=== PATIENT | male | born 1995 | race Two or more races ===

== ENCOUNTER 2017-10-10 08:40 | Emergency (ER) | payer OTHER ==
--- NOTE | 2017-10-10 08:54 | CPEKG ---
Heart Rate: 70 RR Interval: 857 P-R Interval: 152 QRSD Interval: 84 QT Interval: 352 QTC Interval: 380 P Ward: 36 QRS Ward: 20 T Wave Ward: 6 EKG Severity - NORMAL ECG - EKG Impression: SINUS RHYTHM Electronically Signed By: Jameel Meraz 10-Oct-2017 13:51:28
--- NOTE | 2017-10-10 08:54 | EDPHY ---
H & P Stated Complaint: felt heart was fast and irreg last night/same incidence 2 weeks ago wnl at Time Seen by Provider: 10/10/17 08:47 - Personal History Current Tetanus Diphtheria and Acellular Pertussis (TDAP): Yes - Medical/Surgical History Hx Asthma: No Hx Chronic Respiratory Disease: No Hx Diabetes: No Hx Cardiac Disease: No Hx Renal Disease: No Hx Cirrhosis: No Hx Alcoholism: No Hx HIV/AIDS: No Hx Splenectomy or Spleen Trauma: No Other PMH: denies - Social History Smoking Status: Never smoked Constitutional: Initial Vital Signs Temperature (C) 36.4 C 10/10/17 08:44 Heart Rate 76 10/10/17 08:44 Respiratory Rate 18 10/10/17 08:44 Blood Pressure 124/95 H 10/10/17 08:44 O2 Sat (%) 94 10/10/17 08:44 O2 Delivery Mode Room Air Allergies/Adverse Reactions: No Known Allergies Allergy (Unverified 10/10/17 08:43) Home Medications: Medication Instructions Recorded Amoxicillin 10/10/17 Medical Decision Making ED Course/Re-evaluation: CHIEF COMPLAINT: Palpitations HISTORY OF PRESENT ILLNESS: This patient is a 21 year old male visiting from [place] complaining of heart palpitations. His symptoms initially occurred two weeks ago while he was in [place]. He had an emergency department workup at that time and states that he received a medication to relieve symptoms. Two days ago, he felt dizzy and lightheaded and had odd intermittent pains over his body. He has felt weak and nauseous for several days. Last night before bed, he felt some palpitations. He woke up twice in the night with a rapid heart rate which he describes as irregular. He denies any family history of cardiac arrhythmias. He is taking amoxicillin currently for a sore throat and is on his 9th day of that medication. He denies any other medications. He denies chest pain, difficulty breathing, fever, vomiting, or other associated symptoms. REVIEW OF SYSTEMS: A 10 point review of systems was performed and is negative with the exception of the elements mentioned in the history of present illness. PHYSICAL EXAM: HR, BP, O2 Sat, RR. Temp noted General Appearance: Alert, well hydrated, appropriate, and non-toxic appearing. Head: Atraumatic without scalp tenderness or obvious injury Eyes: Pupils equal, round, reactive to light and accommodation, EOMI, no trauma , no injection. Ears: Clear bilaterally, no perforation, normal landmarks Nose: Atraumatic, no rhinorrhea, clear. Throat: There is no erythema or exudates, no lesions, normal tonsils, mucus membranes moist. Neck: Supple, 2+ carotid upstroke, nontender, no lymphadenopathy. Respiratory: No retractions, no distress, no wheezes, and no accessory muscle use. Lungs are clear to auscultation bilaterally. Cardiovascular: Regular rate and rhythm, no murmurs, rubs, or gallops. Bilateral carotid, radial, dorsalis pedis, and posterior tibial pulses intact. Good capillary refill all extremities. Gastrointestinal: Abdomen is soft, nontender, non-distended, no masses, no rebound, no guarding, no peritoneal signs. Musculoskeletal: Normal active ROM of all extremities, atraumatic. Neurological: Alert, appropriate, and interactive. The patient has normal DTRs and non-focal cranial nerves, motor, sensory, and cerebellar exam. Skin: No rashes, good turgor, no nodules on palpation. Past medical history: Denies Past surgical history: Noncontributory Family history: Noncontributory Social history: Visiting from [place]. Brother at bedside. Originally from [facility]. Does not abuse tobacco drugs or alcohol. DIAGNOSTICS/PROCEDURES/CRITICAL CARE TIME: The 12 lead EKG was interpreted by myself. See hard copy and/or "tracemaster" electronic copy for interpretation. Sinus rhythm, rate 70. No evidence of ischemia. DIFFERENTIAL DIAGNOSIS: The differential diagnosis for the patient's palpitations included but was not limited to various causes of sinus tachycardia such as dehydration and medicines , SVT, atrial flutter, atrial fibrillation, pulmonary causes. MEDICAL DECISION MAKIN21 y/o male presents with two week history of intermittent palpitations with associated weakness, lightheadedness, and nausea. Plan for EKG, labs including CBC, chemistries, Troponin, D-dimer, Mg, TSH. Reviewed EKG. Sinus rhythm, no evidence of ischemia. Troponin and D-dimer negative. Labs otherwise unremarkable. TSH pending. 9:55 Reassessed patient. He is returning to [facility] on 10/16/17. Plan to refer the patient for a Holter monitor study prior to his departure. 10:08 Consulted with PAVEL Cazares for cardiology. The office will call the patient today to schedule Holter monitor placement. Plan to discharge home in good condition with referral to cardiology. Follow up and return precautions discussed. The patient is comfortable with this plan. - Data Points Laboratory Results: Laboratory Results 10/10/17 09:16 18 09:16 10/10/17 10/10/17 10/10/17 09:16 09:16 09:16 WBC 9.70 10^3/uL H 10^3/uL (3.80-9.50) RBC 5.34 10^6/uL 10^6/uL (4.40-6.38) Hgb 15.2 g/dL g/dL (13.7-17.5) Hct 44.8 % % (40.0-51.0) MCV 83.9 fL fL (81.5-99.8) MCH 28.5 pg pg (27.9-34.1) MCHC 33.9 g/dL g/dL (32.4-36.7) RDW 12.5 % % (11.5-15.2) Plt Count 251 10^3/uL 10^3/uL (150-400) MPV 9.7 fL fL (8.7-11.7) Neut % (Auto) Not Reported Lymph % (Auto) Not Reported [place] % (Auto) Not Reported Eos % (Auto) Not Reported Baso % (Auto) Not Reported Nucleat RBC Rel Count Not Reported Absolute Neuts (auto) Not Reported Absolute Lymphs (auto) Not Reported Absolute Monos (auto) Not Reported Absolute Eos (auto) Not Reported Absolute Basos (auto) Not Reported Absolute Nucleated RBC Not Reported Immature Gran % Not Reported Seg Neutrophils % 71.0 % % Band Neutrophils % 0 % % Lymphocytes % 24.0 % % Monocytes % 4.0 % % Eosinophils % 0 % % Basophils % 0 % % Metamyelocytes % 0 % % Myelocytes % 1.0 % % Promyelocytes % 0 % % Blast Cells % 0 % % Immature Gran # Not Reported Absolute Seg Neuts 6.89 10^/uL H 10^/uL (1.70-6.50) Absolute Band Neuts 0.00 10^3/uL 10^3/uL (0.00-0.70) Absolute Lymphocytes 2.33 10^3/uL 10^3/uL (1.00-3.00) Absolute Monocytes 0.39 10^3/uL 10^3/uL (0.30-0.80) Absolute Eosinophils 0.00 10^3/uL L 10^3/uL (0.03-0.40) Absolute Basophils 0.00 10^3/uL L 10^3/uL (0.02-0.10) Absolute Metamyelocyte 0.00 10^3/mL 10^3/mL (0.00-0.00) Absolute Myelocytes 0.10 10^3/mL H 10^3/mL (0.00-0.00) Absolute Promyelocytes 0.00 10^3/uL 10^3/uL (0.00-0.00) Absolute Plasma Cells 0.00 10^3/uL 10^3/uL (0.00-0.00) RBC/WBC/PLT Morphology NORMAL (NORMAL) Absolute Blast Cells 0.00 10^3/uL 10^3/uL (0.00-0.00) Plasma Cells % 0 % % Platelet Estimate ADEQUATE (ADEQ) D-Dimer 0.27 ug/mLFEU ug/mLFEU (0.00-0.50) Sodium 142 mEq/L mEq/L (135-145) Potassium 4.2 mEq/L mEq/L (3.3-5.0) Chloride 104 mEq/L mEq/L (97-110) Carbon Dioxide 26 mEq/l mEq/l (22-31) Anion Gap 12 mEq/L mEq/L (8-16) BUN 10 mg/dL mg/dL (7-23) Creatinine 0.9 mg/dL mg/dL (0.7-1.3) Estimated GFR > 60 Glucose 95 mg/dL mg/dL (70-100) Calcium 9.2 mg/dL mg/dL (8.5-10.4) Magnesium 2.0 mg/dL mg/dL (1.6-2.3) Troponin I < 0.012 ng/mL ng/mL (0.000-0.034) TSH 4.560 uIU/mL uIU/mL (0.465-4.680) Departure - Departure Disposition: Home, Routine, Self-Care Clinical Impression: Palpitations Condition: Good Instructions: Heart Palpitations (ED) Additional Instructions: 1. Follow up with cardiology for a Holter monitor evaluation. 2. Return to the emergency department for chest pain, difficulty breathing, fever, or other worsening of condition. Referrals: Luz Maria Cruz PA [Physician [facility]] - As per Instructions Timur Saab MD [Medical Doctor] - As per Instructions Report Scribed for: Jameel Meraz Report Scribed by: Mylene Manuel Date of Report: 10/10/17 Time of Report: 09:50
[2017-10-10 09:20] LABS: PLATELET COUNT 251 10^3/uL (150-400)
[2017-10-10 10:08] VITALS: BP 127/74
== END 2017-10-10 10:07 | disposition home or self-care (01) ==
DX: R00.2 Palpitations (principal)